=== PATIENT | female | born 1945 | race African-American/Black ===

== ENCOUNTER 2017-03-29 13:04 | Outpatient (CLI) | payer MEDICARE, MEDICAID ==
[2017-03-29 17:07] LABS: #Basophils 0.1 thou/uL (0.0-0.2); #Eosinphils 0.1 thou/uL (0.0-0.7); #Lymphocytes 1.4 thou/uL (1.20-3.40); #Monocytes 0.5 thou/uL (0.11-0.59); #Neutrophils 3.7 thou/uL (1.40-6.50); %Eosinophils 2.1 % (0.0-10.0); %Lymphocytes 23.6 % (21.0-51.0); %Neutrophils 63.3 % (42.0-75.0); Hemoglobin 13.1 g/dL (12.0-16.0); Hypochromia SLIGHT = 6-15 cells (100X) (0-5/hpf); MDiff Complete? YES; Mean Corpuscular HGB CONC 29.3 g/dL (32.0-36.0); Mean Corpuscular Hemoglobin 22.8 pg (27.0-31.0); Mean Corpuscular Volume 77.8 fl (81.0-99.0); Mean Platelet Volume 8.4 fL (7.4-10.4); Microcytosis SLIGHT = 6-15 cells (100X) (0-5/hpf); Platelet Count 271 thou/uL (130-400); Red Blood Cell (RBC) Count 5.76 mill/uL (4.20-5.40); Target Cells SLIGHT = 2-5 cells (100X) (0-1/hpf); White Blood Cell (WBC) Count 5.8 thou/uL (4.8-10.8)
[2017-03-29 17:42] LABS: ALT (SGPT) 12 U/L (8-55); AST (SGOT) 14 U/L (5-34); Alkaline Phosphatase 64 U/L (40-150); Anion Gap 14 mmol/L (10-20); BUN (Urea Nitrogen) 15 mg/dL (9.8-20.1); Bilirubin, Total 0.4 mg/dL (0.2-1.2); Calc. Creatinine Clearance 0 mL/min (70-130); Calcium 9.2 mg/dL (7.8-10.44); Carbon Dioxide 24 mmol/L (23-31); Cardiac Risk 2.6 (Less than 4.5); Chloride 110 mmol/L (98-107); Cholesterol 163 mg/dL (< 200 Desired); Estimated GFR-MDRD 86; Globulin 2.8 g/dL (2.4-3.5); Glucose 114 mg/dL (83-110); HDL Cholesterol 63 mg/dL (>60 Neg Risk); LDL Cholesterol, Calculated 92 mg/dL; Potassium 5.3 mmol/L (3.5-5.1); Protein, Total 6.8 g/dL (5.8-8.1); Sodium 143 mmol/L (136-145); Triglycerides 42 mg/dL (Less than 150)
== END 2017-03-29 13:05 ==
LOC: LABLEX 13:04
PROVIDERS: ATTEND Family Medicine
DX: Z13.1 Encounter for screening for diabetes mellitus (principal); I10 Essential (primary) hypertension
CPT/HCPCS: 80053; 80061; 84443; 85025

== ENCOUNTER 2017-04-12 09:14 | Outpatient (CLI) | payer MEDICARE, MEDICAID ==
[2017-04-13 06:29] LABS: ALT (SGPT) 15 U/L (8-55); AST (SGOT) 17 U/L (5-34); Alkaline Phosphatase 67 U/L (40-150); Anion Gap 13 mmol/L (10-20); BUN (Urea Nitrogen) 15 mg/dL (9.8-20.1); Bilirubin, Total 0.3 mg/dL (0.2-1.2); Calc. Creatinine Clearance 0 mL/min (70-130); Calcium 9.8 mg/dL (7.8-10.44); Carbon Dioxide 25 mmol/L (23-31); Cardiac Risk 2.4 (Less than 4.5); Chloride 112 mmol/L (98-107); Cholesterol 146 mg/dl (< 200 Desired); Estimated GFR-MDRD 83; Globulin 2.9 g/dL (2.4-3.5); Glucose 121 mg/dL (83-110); HDL Cholesterol 60 mg/dL (>60 Neg Risk); LDL Cholesterol, Calculated 78 mg/dL; Potassium 4.8 mmol/L (3.5-5.1); Protein, Total 6.9 g/dL (6.0-8.3); Sodium 145 mmol/L (136-145); Triglycerides 42 mg/dL (Less than 150)
== END 2017-04-12 09:15 ==
LOC: LABLEX 09:14
PROVIDERS: ATTEND Family Medicine
DX: Z13.1 Encounter for screening for diabetes mellitus (principal); Z13.6 Encounter for screening for cardiovascular disorders
CPT/HCPCS: 80053; 80061

== ENCOUNTER 2017-04-12 10:00 | Outpatient (CLI) | payer MEDICARE, MEDICAID ==
[2017-04-12 19:15] LABS: Iron 81 ug/dL (50-170); Iron Binding Capacity, Total 275 mcg/dL (265-497)
== END 2017-04-12 10:01 ==
LOC: LABLEX 10:00
PROVIDERS: ATTEND Family Medicine
DX: R71.8 Other abnormality of red blood cells (principal); R73.09 Other abnormal glucose
CPT/HCPCS: 82728; 83036; 83540; 83550

== ENCOUNTER 2017-04-23 16:29 | Emergency (ER) | payer MEDICARE, MEDICAID ==
[2017-04-23] MEDS ORDERED: Adacel (T-DAP) 0.5 ML VIAL ONE (17:09)
[2017-04-23] MEDS ORDERED: Bacitracin Zinc 1 Packet ONE (17:36)
== END 2017-04-23 17:43 | disposition home or self-care (01) ==
LOC: BURERS 16:29
DX: S61.210A Laceration without foreign body of right index finger without damage to nail, initial encounter (principal); Z23 Encounter for immunization; Z79.899 Other long term (current) drug therapy; E78.5 Hyperlipidemia, unspecified; I10 Essential (primary) hypertension; F17.210 Nicotine dependence, cigarettes, uncomplicated; W45.8XXA Other foreign body or object entering through skin, initial encounter
CPT/HCPCS: 12001; 90471; 90715

== ENCOUNTER 2019-02-07 12:51 | Emergency (ER) | payer MEDICARE, MEDICAID | END 2019-02-07 13:30 | disposition home or self-care (01) | LOC: BURERS 12:51 | DX: S80.212A Abrasion, left knee, initial encounter (principal); H61.23 Impacted cerumen, bilateral; I10 Essential (primary) hypertension; E78.5 Hyperlipidemia, unspecified; F17.210 Nicotine dependence, cigarettes, uncomplicated; Z79.899 Other long term (current) drug therapy; W19.XXXA Unspecified fall, initial encounter | CPT/HCPCS: 69210 ==

== ENCOUNTER 2021-03-31 10:40 | Emergency (ER) | payer MEDICARE, OTHER ==
[2021-03-31] MEDS ORDERED: methylPREDNISolone Sod Succ/PF 125 MG/2 ML VIAL ONE (11:11)
== END 2021-03-31 11:18 | disposition home or self-care (01) ==
LOC: BURERS 10:40
DX: L23.7 Allergic contact dermatitis due to plants, except food (principal)
CPT/HCPCS: 96372; 99282; J2930

== ENCOUNTER 2022-01-11 11:27 | Emergency (ER) | payer MEDICARE, OTHER ==
[2022-01-11] MEDS ORDERED: predniSONE 20 MG TAB ONE (11:59)
== END 2022-01-11 12:04 | disposition home or self-care (01) ==
LOC: BURERS 11:27
DX: T78.40XA Allergy, unspecified, initial encounter (principal)
CPT/HCPCS: 99282; J7512

== ENCOUNTER 2024-05-02 10:18 | Outpatient (CLI) | payer OTHER, MEDICAID | END 2024-05-02 10:19 | disposition home or self-care (01) | LOC: BURRAD 10:18 | PROVIDERS: ATTEND Registered Nurse Hospice | DX: M25.511 Pain in right shoulder (principal); M25.811 Other specified joint disorders, right shoulder ==

== ENCOUNTER 2024-12-10 15:54 | Emergency (ER) | payer OTHER ==
[2024-12-10 16:28] LABS: #Basophils 0.1 thou/uL (0.0-0.2); #Monocytes 0.7 thou/uL (0.11-0.59); #Neutrophils 3.3 thou/uL (1.40-6.50); %Basophils 1.5 % (0.0-1.0); %Eosinophils 0.4 % (0.0-10.0); %Lymphocytes 48.6 % (21.0-51.0); %Monocytes 8.5 % (0.0-10.0); %Neutrophils 40.9 % (42.0-75.0); Hematocrit 48.3 % (36.0-47.0); Hemoglobin 14.3 g/dL (12.0-16.0); Mean Corpuscular HGB CONC 29.6 g/dL (32.0-36.0); Mean Corpuscular Hemoglobin 21.9 pg (27.0-31.0); Mean Platelet Volume 7.8 fL (7.4-10.4); Platelet Count 302 10x3/uL (130-400); Red Blood Cell (RBC) Count 6.52 mill/uL (4.20-5.40); White Blood Cell (WBC) Count 8.1 10x3/uL (4.8-10.8)
[2024-12-10 16:40] LABS: ALT (SGPT) 19 U/L (8-55); AST (SGOT) 16 U/L (5-34); Albumin 4.2 g/dL (3.4-4.8); Alkaline Phosphatase 89 U/L (40-110); Anion Gap 15 mmol/L (10-20); BUN (Urea Nitrogen) 13 mg/dL (9.8-20.1); Bilirubin, Total 0.4 mg/dL (0.2-1.2); Calc. Creatinine Clearance 0 mL/min (70-130); Calcium 10.3 mg/dL (7.8-10.44); Carbon Dioxide 25 mmol/L (23-31); Chloride 102 mmol/L (98-107); Estimated GFR 75; Globulin 3.5 g/dL (2.4-3.5); Glucose 115 mg/dL (83-110); Potassium 3.1 mmol/L (3.5-5.1); Protein, Total 7.7 g/dL (5.8-8.1); Sodium 139 mmol/L (136-145)
[2024-12-10 16:42] LABS: Troponin I 0.028 ng/mL (< 0.028)
[2024-12-10 16:47] LABS: MDiff Complete? YES
[2024-12-10] MEDS ORDERED: Potassium Chloride 20 MEQ TAB ONE (17:33)
== END 2024-12-10 17:55 | disposition home or self-care (01) ==
LOC: BURERS 15:54
DX: I47.10 Supraventricular tachycardia, unspecified (principal); E87.6 Hypokalemia; I10 Essential (primary) hypertension; F17.210 Nicotine dependence, cigarettes, uncomplicated; Z79.899 Other long term (current) drug therapy
CPT/HCPCS: 71045; 80053; 83880; 84484; 85025; 93005; 96360

== ENCOUNTER 2025-10-12 15:33 | Emergency (ER) | payer OTHER, MEDICAID ==
[2025-10-12] MEDS ORDERED: Ketorolac Tromethamine 30 MG (1 mL) VIAL ONE (16:17)
== END 2025-10-12 16:27 | disposition home or self-care (01) ==
LOC: BURERS 15:33
DX: M17.12 Unilateral primary osteoarthritis, left knee (principal); I10 Essential (primary) hypertension; E11.9 Type 2 diabetes mellitus without complications; F17.210 Nicotine dependence, cigarettes, uncomplicated
CPT/HCPCS: 96372; 99283; J1885